=== PATIENT | male | born 1975 | race Caucasian/White ===

== ENCOUNTER 2019-02-06 06:19 | Day surgery (SDC) | payer MEDICAID ==
[~2019-02-06] VITALS: Ht 177.8 cm; Wt 104.3 kg
[2019-02-06] MEDS ORDERED: BUPIVACAINE/PF 0.25% ONE (06:29)
[2019-02-06] MEDS ORDERED: ACETAMINOPHEN 500 MG TABLET PO STA (06:59)
[2019-02-06] MEDS ORDERED: NONE PER PT (06:59)
[2019-02-06] MEDS ORDERED: GABAPENTIN 300 MG CAPSULE PO STA (06:59)
[2019-02-06 07:01] VITALS: BP 117/73
[2019-02-06] MEDS ORDERED: LACTATED RINGERS 1,000 ML IV SCH (07:01)
[2019-02-06] MEDS ORDERED: MIDAZOLAM 1 MG/ML, 2ML ONE (07:18)
[2019-02-06] MEDS ORDERED: FENTANYL PF 250 MCG/5ML ONE (07:18)
[2019-02-06] MEDS ORDERED: ROPIvacaine/PF 0.2%, 20 ML ONE (07:20)
[2019-02-06] MEDS ORDERED: GLYCOPYRROLATE 0.2MG/1ML, 5ML ONE (07:23)
[2019-02-06] MEDS ORDERED: PROPOFOL 10 MG/ML, 20ML ONE (07:23)
[2019-02-06] MEDS ORDERED: CEFAZOLIN 1,000 MG ONE (07:23)
[2019-02-06] MEDS ORDERED: ROCURONIUM 10MG/ML,5ML ONE (07:23)
[2019-02-06] MEDS ORDERED: NEOSTIGMINE 1 MG/ML, 10ML ONE (07:23)
[2019-02-06] MEDS ORDERED: MEPERIDINE/PF 25MG/0.5ML IVPush PRN (08:30)
[2019-02-06] MEDS ORDERED: hydrALAzine 20 MG/ML, 1ML IV PRN (08:30)
[2019-02-06] MEDS ORDERED: ONDANSETRON ODT 8 MG PO PRN (08:30)
[2019-02-06] MEDS ORDERED: LABETALOL 5MG/ML, 20ML IV PRN (08:30)
[2019-02-06] MEDS ORDERED: PROMETHAZINE 25 MG/ML, 1ML IV PRN (08:30)
[2019-02-06] MEDS ORDERED: OXYcodone 5 MG/5 ML ORAL.SOL UDC PO PRN (08:30)
[2019-02-06] MEDS ORDERED: PROMETHAZINE 25 MG SUPP PR PRN (08:30)
[2019-02-06] MEDS ORDERED: MORPHINE SULFATE 4 MG/ML, 1ML IVPush PRN (08:30)
[2019-02-06] MEDS ORDERED: ONDANSETRON 2MG/ML, 2ML IV PRN (08:30)
[2019-02-06] MEDS ORDERED: PROMETHAZINE 12.5 MG SUPP PR PRN (08:30)
[2019-02-06] MEDS ORDERED: PROMETHAZINE 25 MG/ML, 1ML IM PRN ×2 (08:30)
[2019-02-06] MEDS ORDERED: OXYcodone 5 MG/5 ML ORAL.SOL UDC ONE (09:40)
[2019-02-06] MEDS: FENTANYL PF 100 MCG/2ML IV PRN ×2 (09:40→10:00)
[2019-02-06] MEDS ORDERED: FENTANYL PF 100 MCG/2ML ONE (09:41)
== END 2019-02-06 14:45 | disposition home or self-care (01) ==
LOC: OUT 06:19
PROVIDERS: ATTEND Orthopaedic Surgery
DX: S46.011A Strain of muscle(s) and tendon(s) of the rotator cuff of right shoulder, initial encounter (principal); S43.431A Superior glenoid labrum lesion of right shoulder, initial encounter; M19.011 Primary osteoarthritis, right shoulder; M75.51 Bursitis of right shoulder; M75.41 Impingement syndrome of right shoulder; G40.909 Epilepsy, unspecified, not intractable, without status epilepticus; E66.9 Obesity, unspecified; Z68.30 Body mass index [BMI] 30.0-30.9, adult; X58.XXXA Exposure to other specified factors, initial encounter; Y93.89 Activity, other specified; Y92.89 Other specified places as the place of occurrence of the external cause; Y99.8 Other external cause status; Z88.5 Allergy status to narcotic agent; Z91.048 Other nonmedicinal substance allergy status; Z72.89 Other problems related to lifestyle; Z82.3 Family history of stroke
CPT/HCPCS: 29823; 29824; 29826; 64415; 93005; J0690; J2250; J2704; J2710; J2795; J3010; J3490; J7120